=== PATIENT | female | born 1995 | race Caucasian/White ===

== ENCOUNTER 2016-06-17 07:01 | Day surgery (SDC) | payer MEDICAID ==
[~2016-06-17 07:01] MED LIST: Dextrose 5%-0.45% NaCl 1,000 ML IV SCH; Midazolam 1 MG/ML 2 ML SDV ONE; Sodium Chloride 0.9% 10 ML Syringe FLUSH PRN; fentaNYL 100 MCG/2 ML SDV ONE
[2016-06-17] MEDS ORDERED: fentaNYL 100 MCG/2 ML SDV IV ONE ×3 (07:59→16:25)
[2016-06-17] MEDS ORDERED: Midazolam 1 MG/ML 2 ML SDV IV ONE ×3 (08:00→16:25)
--- NOTE | 2016-06-17 08:32 | OR ---
DATE: 06/17/2016 PROCEDURE: Esophagogastroduodenoscopy and multiple pinch biopsies. INSTRUMENT USED: GIF-H180 Olympus video panendoscope. PREMEDICATIONS: No oral topical anesthesia used. Fentanyl 100 mcg intravenous, Versed 2 mg intravenous. The procedure was done under pulse oximetry, BP recording, and personnel monitor. INDICATION: The patient with persistent abdominal pain and diarrhea unexplained and not responsive to medical measures, on PPI. Esophagogastroduodenoscopy is performed for detection of any active erosive lesions, malignancy also under consideration, H. pylori status to be determined, small bowel biopsies to be obtained for celiac disease if indicated, endoscopic hemostasis therapy if needed. DESCRIPTION OF PROCEDURE: The scope was passed with ease. Adequate visualization of the esophagus was made from proximal to distal areas. No upper esophageal lesions identified. No distal esophageal stricture. No uphill or downhill esophageal varices. No Suzanna-Renee tear. No evidence of erosive esophagitis by Carrabelle criteria. No esophageal polyp or tumor mass identified. Z-line was seen at around 40 cm distal to the oral verge, configuration consistent with grade 1 by ZAP classification. No proximal gastric varices noted. Gastric fundus examination by retroflexion showed no polypoid lesions. No gastric ulcer, malignant mass, or vascular ectasia identified. Duodenal bulb showed no ulcer. Visualized second part of the duodenum was unremarkable. Multiple pinch biopsies, 4 in number were taken from the second part of the duodenum, also tissues were obtained from 9 and 12 o'clock positions from the duodenal bulb and sent for any histopathologic evidence of celiac disease. Multiple pinch biopsies were taken from the gastric antrum and proximal body and sent for PyloriTek test for H. pylori and histopathology. No bleeding was noted from any of the visualized areas at the completion of examination. Photographs were taken of the duodenal bulb, gastric antrum, fundus, and distal esophagus. IMPRESSION: Normal study. The patient tolerated the procedure well. [facility] /[id number]
[2016-06-17 09:47] VITALS: BP 114/64
== END 2016-06-17 10:05 | disposition home or self-care (01) ==
LOC: DL.ENDO 07:01
PROVIDERS: ATTEND Internal Medicine Gastroenterology
DX: K29.50 Unspecified chronic gastritis without bleeding (principal); F98.8 Other specified behavioral and emotional disorders with onset usually occurring in childhood and adolescence; F17.210 Nicotine dependence, cigarettes, uncomplicated; Z88.1 Allergy status to other antibiotic agents; Z88.8 Allergy status to other drugs, medicaments and biological substances; Z98.890 Other specified postprocedural states
CPT/HCPCS: 43239; 87077; J2250; J3010; J7042

== ENCOUNTER 2016-07-29 16:30 | Emergency (ER) | payer MEDICAID ==
[2016-07-29 16:38] VITALS: BP 130/79
--- NOTE | 2016-07-29 16:51 | EDM.PDOC ---
ED HPI GENERAL MEDICAL PROBLEM - General Chief Complaint: Skin Complaint Stated Complaint: ABSCESS Time Seen by Provider: 07/29/16 16:40 Source of Information: Reports: Patient History Limitations: Reports: No Limitations - History of Present Illness INITIAL COMMENTS - FREE TEXT/NARRATIVE: This 20 yo female patient reports to the ED with increased pain due to a possible abscess. The patient has a history of a perirectal abscess. The patient reports increased pain over the past week. The patient reports she has had surgery on her abscess in the past. The patient reports she has not been able to get into her primary care provider, but has not really contacted the Clinic. The patient reports she has changed her primary provider, but has not talked to her about the abscess. Onset: Gradual Duration: Week(s):, Constant, Getting Worse Location: Reports: Other Quality: Reports: Ache, Dull Severity: Moderate Improves with: Reports: None Worsens with: Reports: None Context: Reports: Other Associated Symptoms: Reports: No Other Symptoms Perineal Area Pain Score (Numeric/FACES): 8 - Related Data Allergies Allergy/AdvReac Type Severity Reaction Status Date / Time cefixime [From Suprax] Allergy Rash Verified 07/29/16 16:44 loracarbef [From Lorabid] Allergy Rash Verified 07/29/16 16:44 prednisolone [From Prelone] Allergy Cannot Verified 07/29/16 16:44 Remember Home Meds: Home Meds Levonorgestrel-Ethin Estradiol [Falmina-28 Tablet] 1 tab PO DAILY 07/01/14 [ History] Pantoprazole [ProTONIX] 1 tab PO DAILY 03/19/16 [History] Acetaminophen 2 tab PO ASDIRECTED PRN 06/11/16 [History] Ibuprofen 1 tab PO ASDIRECTED 06/11/16 [History] Past Medical History - Past Health History Medical/Surgical History: Denies Medical/Surgical History HEENT History: Reports: Hard of Hearing, Impaired Vision Other HEENT History: WEARS HEARING AIDES Cardiovascular History: Reports: None Respiratory History: Reports: None Gastrointestinal History: Reports: GERD Other Gastrointestinal History: DRAINAGE FROM A BUMP IN GLUTEAL CREASE Genitourinary History: Reports: None NUTRITIONALIST History: Reports: None Musculoskeletal History: Reports: Fracture Neurological History: Reports: None Psychiatric History: Reports: None Endocrine/Metabolic History: Reports: None Hematologic History: Reports: None Immunologic History: Reports: None Oncologic (Cancer) History: Reports: None Dermatologic History: Reports: None - Infectious Disease History Infectious Disease History: Reports: Chicken Pox - Past Surgical History Head Surgeries/Procedures: Reports: None HEENT Surgical History: Reports: Oral Surgery Cardiovascular Surgical History: Reports: None Respiratory Surgical History: Reports: None Female Surgical History: Reports: None Endocrine Surgical History: Reports: None Neurological Surgical History: Reports: None Musculoskeletal Surgical History: Reports: None Oncologic Surgical History: Reports: None Dermatological Surgical History: Reports: None Social & Family History - Family History Family Medical History: Noncontributory - Tobacco Use Smoking Status *Q: Never Smoker Used Tobacco, but Quit: No Second Hand Smoke Exposure: No - Caffeine Use Caffeine Use: Reports: Soda Other Caffeine Use: AVERAGE OF TWO DAILY - Recreational Drug Use Recreational Drug Use: No ED ROS GENERAL - Review of Systems Review Of Systems: ROS reveals no pertinent complaints other than HPI. ED EXAM, SKIN/RASH Exam: See Below Exam Limited By: No Limitations General Appearance: Alert, WD/WN, Mild Distress Eye Exam: Bilateral Eye: EOMI, Normal Inspection, PERRL Ears: Normal External Exam, Normal Canal, Hearing Grossly Normal, Normal TMs Nose: Normal Inspection, Normal Mucosa, No Blood Throat/Mouth: Normal Inspection, Normal Lips, Normal Teeth, Normal Gums, Normal Oropharynx, Normal Voice, No Airway Compromise Head: Atraumatic, Normocephalic Neck: Normal Inspection, Supple, Non-Tender, Full Range of Motion Respiratory/Chest: No Respiratory Distress, Lungs Clear, Normal Breath Sounds, No Accessory Muscle Use, Chest Non-Tender Cardiovascular: Normal Peripheral Pulses, Regular Rate, Rhythm, No Edema, No Gallop, No JVD, No Murmur, No Rub GI/Abdominal: Normal Bowel Sounds, Soft, Non-Tender, No Organomegaly, No Distention, No Abnormal Bruit, No Mass (Female) Exam: Deferred Rectal (Female) Exam: Perirectal Abscess (that is currently actively draining) Back Exam: Normal Inspection, Full Range of Motion, NT Extremities: Normal Inspection, Normal Range of Motion, Non-Tender, No Pedal Edema, Normal Capillary Refill Neurological: Alert, Oriented, CN II-XII Intact, Normal Cognition, Normal Gait, Normal Reflexes, No Motor/Sensory Deficits Skin: Warm, Dry, Normal Color, No Rash Location, Skin: Perirectal Characteristics: Erythematous Associated features: Warmth, Tenderness, Wwelling. No: Induration Course - Vital Signs Last Recorded V/S: Last Vital Signs Temp 36.2 C 07/29/16 16:37 Pulse 91 07/29/16 16:37 Resp 16 07/29/16 16:37 BP 130/79 07/29/16 16:37 Pulse Ox 100 07/29/16 16:37 Departure - Departure Time of Disposition: 16:52 Disposition: Home, Self-Care 01 Condition: Fair Clinical Impression: Perirectal abscess - Discharge Information Instructions: Perirectal Abscess Forms: ED Department Discharge Care Plan Goals: The patient was advised of the examination results during the visit. The patient was given a script for Bactrim DS to take 1 by mouth 2 times per day for 14 days. The patient should follow-up with her primary care facility for continued evaluation and further treatment. If the patient has any additional symptoms or further concerns, the patient should visit her primary care facility or return to the emergency department.
== END 2016-07-29 16:58 | disposition home or self-care (01) ==
LOC: DL.ED 16:30
DX: K61.1 Rectal abscess (principal); K21.9 Gastro-esophageal reflux disease without esophagitis; Z79.899 Other long term (current) drug therapy; Z88.1 Allergy status to other antibiotic agents; Z88.8 Allergy status to other drugs, medicaments and biological substances
CPT/HCPCS: 99283